=== PATIENT | female | born 1940 | race Caucasian/White ===

== ENCOUNTER → 2018-05-03 | Outpatient (REF) | payer MEDICARE, OTHER ==
[2018-05-03 18:24] LABS: APPEARANCE, URINE HAZY (CLEAR); BACTERIA, URINE AUTO 1+ (NEGATIVE); BILIRUBIN, URINE AUTO NEGATIVE (NEGATIVE); BLOOD, URINE BLOOD 2+ (NEGATIVE); COLOR, URINE YELLOW (YELLOW); GLUCOSE, URINE (UA) AUTO NEGATIVE (NEGATIVE); KETONE, URINE AUTO NEGATIVE (NEGATIVE); LEUKOCYTE ESTERASE, URINE AUTO 3+ (NEGATIVE); MUCUS, URINE SMALL (NEGATIVE); NITRITE, URINE AUTO NEGATIVE (NEGATIVE); PROTEIN, URINE AUTO NEGATIVE (NEGATIVE); RBC, URINE AUTO 27 /HPF (0-3); SPECIFIC GRAVITY URINE AUTO 1.021 (1.002-1.035); SQUAMOUS EPITHELIAL CELL UR AU 0 /HPF (0-6); UROBILINOGEN, URINE AUTO 0.2 mg/dL (0.0-2.0); WBC, URINE AUTO TNTC /HPF (0-3)
== END ==
LOC: M SFHCCAPE 13:16
DX: R30.0 Dysuria (principal)
CPT/HCPCS: 81001

== ENCOUNTER → 2018-07-31 | Outpatient (REF) | payer MEDICARE, OTHER ==
[2018-07-31 16:52] LABS: APPEARANCE, URINE CLOUDY (CLEAR); BACTERIA, URINE AUTO NEGATIVE (NEGATIVE); BILIRUBIN, URINE AUTO NEGATIVE (NEGATIVE); BLOOD, URINE BLOOD NEGATIVE (NEGATIVE); COLOR, URINE AMBER (YELLOW); GLUCOSE, URINE (UA) AUTO NEGATIVE (NEGATIVE); KETONE, URINE AUTO NEGATIVE (NEGATIVE); LEUKOCYTE ESTERASE, URINE AUTO 2+ (NEGATIVE); MUCUS, URINE SMALL (NEGATIVE); NITRITE, URINE AUTO NEGATIVE (NEGATIVE); PROTEIN, URINE AUTO NEGATIVE (NEGATIVE); RBC, URINE AUTO 5 /HPF (0-3); SQUAMOUS EPITHELIAL CELL UR AU 1 /HPF (0-6); UROBILINOGEN, URINE AUTO 0.2 mg/dL (0.0-2.0); WBC, URINE AUTO 8 /HPF (0-3)
== END ==
LOC: M SFHCCAPE 13:28
PROVIDERS: ATTEND Physician Assistant
DX: N39.0 Urinary tract infection, site not specified (principal)
CPT/HCPCS: 81001; 87086; G0463

== ENCOUNTER → 2018-12-29 | Outpatient (REF) | payer MEDICARE, OTHER | LOC: M SFHCCLAY 11:48 | PROVIDERS: ATTEND Family Medicine | DX: N30.00 Acute cystitis without hematuria (principal) | CPT/HCPCS: 81002; 87086; G0463 ==

== ENCOUNTER → 2019-01-08 | Outpatient (CLI) | payer MEDICARE, OTHER ==
--- NOTE | 2019-01-16 12:49 | REP ---
CT ABDOMEN AND PELVIS WITHOUT IV CONTRAST: CT abdomen and pelvis performed without oral or IV contrast. Sagittal and coronal reconstruction images are performed. Comparison prior study [facility] dated 11/09/2013. The visualized lung bases demonstrate no evidence of acute infiltrate. There is a small hiatal hernia. The liver, gallbladder, spleen, adrenals, pancreas and right kidney are grossly unremarkable. There is no right hydronephrosis or nephrolithiasis. There is again evidence of prior left retroperitoneal surgery with multiple metallic clips noted. There is left renal atrophy. Configuration of the left kidney is unchanged. A small calcification is seen in the lower pole of the left kidney unchanged. There is no left hydronephrosis. There is no abdominal aortic aneurysm. I see no adenopathy in the abdomen or pelvis. There is no free air or free fluid. No bowel wall thickening is seen. There is no evidence of appendicitis. There is sigmoid diverticulosis. There is no gross pelvic mass. Urinary bladder is mildly distended and grossly unremarkable. There are degenerative changes of the spine. IMPRESSION: Small hiatal hernia. Postsurgical changes left retroperitoneum with left renal atrophy again noted. Small calcification again seen in the lower pole of the left kidney. The appearance is similar to prior CT exam of 11/09/2013. No hydronephrosis bilaterally. No evidence of appendicitis. There is sigmoid diverticulosis without definite evidence of diverticulitis. No free air or free fluid. Electronically Signed by Myke Santoyo MD 01/17/2019 08:29 P
== END ==
LOC: M RAD 13:07
PROVIDERS: ATTEND Physician Assistant
DX: K44.9 Diaphragmatic hernia without obstruction or gangrene (principal); N26.1 Atrophy of kidney (terminal); N20.0 Calculus of kidney; K57.30 Diverticulosis of large intestine without perforation or abscess without bleeding; R53.83 Other fatigue; R50.9 Fever, unspecified; R10.9 Unspecified abdominal pain
CPT/HCPCS: 36415; 74176; 81002; G0463

== ENCOUNTER → 2019-01-08 | Outpatient (REF) | payer MEDICARE, OTHER ==
[2019-01-08 18:00] LABS: BASO # 0.1 10^3/uL (0.0-0.2); BASO % 0.4 % (0.0-1.0); EOS % 0.1 % (0.0-3.0); HEMATOCRIT 39.2 % (36.0-47.0); HEMOGLOBIN 12.9 g/dl (12.0-15.5); LYMPH # 3.6 10^3/uL (1.5-4.5); LYMPH % 23.6 % (24.0-44.0); MEAN CORPUSCULAR HEMOGLOBIN 31.9 pg (27.0-33.0); MEAN CORPUSCULAR HGB CONC 32.9 g/dl (32.0-36.5); MONO # 0.6 10^3/uL (0.0-0.8); MONO % 3.8 % (0.0-5.0); NEUTROPHILS # 10.8 10^3/uL (1.8-7.7); NEUTROPHILS % 71.7 % (36.0-66.0); PLATELET COUNT, AUTOMATED 216 10^3/uL (150-450); RED BLOOD COUNT 4.04 10^6/uL (4.00-5.40); WHITE BLOOD COUNT 15.1 10^3/uL (4.0-10.0)
[2019-01-08 18:02] LABS: APPEARANCE, URINE HAZY (CLEAR); BACTERIA, URINE AUTO 1+ (NEGATIVE); BILIRUBIN, URINE AUTO NEGATIVE (NEGATIVE); BLOOD, URINE BLOOD 2+ (NEGATIVE); COLOR, URINE YELLOW (YELLOW); GLUCOSE, URINE (UA) AUTO NEGATIVE (NEGATIVE); KETONE, URINE AUTO NEGATIVE (NEGATIVE); LEUKOCYTE ESTERASE, URINE AUTO 3+ (NEGATIVE); MUCUS, URINE SMALL (NEGATIVE); NITRITE, URINE AUTO NEGATIVE (NEGATIVE); PROTEIN, URINE AUTO NEGATIVE (NEGATIVE); RBC, URINE AUTO 6 /HPF (0-3); SPECIFIC GRAVITY URINE AUTO 1.016 (1.002-1.035); SQUAMOUS EPITHELIAL CELL UR AU 1 /HPF (0-6); UROBILINOGEN, URINE AUTO 0.2 mg/dL (0.0-2.0); WBC, URINE AUTO 23 /HPF (0-3)
[2019-01-08 18:15] LABS: ALBUMIN 3.8 GM/DL (3.2-5.2); BILIRUBIN,TOTAL 0.7 MG/DL (0.2-1.0); CALCIUM LEVEL 9.2 MG/DL (8.8-10.2); CREATININE FOR GFR 1.19 MG/DL (0.55-1.30); GLOMERULAR FILTRATION RATE 46.9 (>39); POTASSIUM SERUM 4.5 MEQ/L (3.5-5.1); THYROID STIMULATING HORMONE 1.99 uIU/ML (0.358-3.740); TOTAL PROTEIN 7.1 GM/DL (6.4-8.2)
== END ==
LOC: M SFHCCAPE 12:01
PROVIDERS: ATTEND Physician Assistant
DX: R30.0 Dysuria (principal); R53.83 Other fatigue; R53.81 Other malaise; R50.9 Fever, unspecified

== ENCOUNTER → 2021-02-10 | Outpatient (REF) | payer MEDICARE, OTHER | LOC: M SFHCCAPE 14:15 | PROVIDERS: ATTEND Physician Assistant | DX: R30.0 Dysuria (principal) | CPT/HCPCS: 81002; 87086; G0463 ==

== ENCOUNTER → 2021-12-17 | Outpatient (REF) | payer MEDICARE, OTHER | LOC: M SFHCCAPE 13:35 | PROVIDERS: ATTEND Physician Assistant | DX: R30.0 Dysuria (principal) ==

== ENCOUNTER → 2021-12-29 | Outpatient (REF) | payer MEDICARE, OTHER | LOC: M SFHCCAPE 11:40 | PROVIDERS: ATTEND Physician Assistant | DX: R30.0 Dysuria (principal) ==

== ENCOUNTER → 2022-01-25 | Outpatient (REF) | payer MEDICARE, OTHER | LOC: M SFHCCAPE 11:15 | PROVIDERS: ATTEND Physician Assistant | DX: R30.0 Dysuria (principal); J06.9 Acute upper respiratory infection, unspecified; Z20.822 Contact with and (suspected) exposure to COVID-19 ==

== ENCOUNTER → 2022-02-25 | Outpatient (REF) | payer MEDICARE, BC, OTHER | LOC: M WUC 16:09 | PROVIDERS: ATTEND Physician Assistant | DX: N39.0 Urinary tract infection, site not specified (principal) ==

== ENCOUNTER → 2023-05-19 | Outpatient (REF) | payer MEDICARE, OTHER | LOC: M SFHCCLAY 14:29 | PROVIDERS: ATTEND Physician Assistant | DX: N39.0 Urinary tract infection, site not specified (principal) ==

== ENCOUNTER → 2024-02-14 | Outpatient (CLI) | payer MEDICARE, BC ==
[2024-02-14 13:42] LABS: HEMATOCRIT 31.5 % (36.0-47.0); HEMOGLOBIN 10.4 g/dl (12.0-15.5); MEAN CORPUSCULAR HEMOGLOBIN 38.1 pg (27.0-33.0); PLATELET COUNT, AUTOMATED 103 10^3/uL (150-450); RED BLOOD COUNT 2.73 10^6/uL (4.00-5.40); WHITE BLOOD COUNT 3.4 10^3/uL (4.0-10.0)
[2024-02-14 13:58] LABS: MEAN CORPUSCULAR VOLUME 115.4 fl (80.0-96.0)
[2024-02-14 14:01] LABS: LDH LACTATE DEHYDROGENASE 254 U/L (120-246)
[2024-02-14 14:02] LABS: IMMUNOGLOBULIN G 716 MG/DL (650-1600)
[2024-02-14 14:03] LABS: ALBUMIN 3.8 G/DL (3.2-5.2); ALKALINE PHOSPHATASE 98 U/L (46-116); ALT/SGPT 20 U/L (7.0-40); AST/SGOT 26 U/L (<34); BILIRUBIN,TOTAL 0.6 MG/DL (0.3-1.2); BLOOD UREA NITROGEN 21 MG/DL (9-23); CALCIUM LEVEL 9.6 MG/DL (8.3-10.6); CARBON DIOXIDE LEVEL 30 MMOL/L (20-31); CHLORIDE LEVEL 108 MMOL/L (98-107); CREATININE FOR GFR 0.94 MG/DL (0.55-1.30); GLOMERULAR FILTRATION RATE > 60.0 (>32); GLUCOSE, FASTING 64 MG/DL (74-106); SODIUM LEVEL 141 MMOL/L (136-145); TOTAL PROTEIN 6.4 G/DL (5.7-8.2)
[2024-02-14 14:34] LABS: EOSINOPHILS 2 % (0-3); LYMPHOCYTES 11 % (16-44); METAMYELOCYTES 3 % (0-0); MONOCYTES 6 % (0-5); MYELOCYTES 3 % (0-0); NEUTROPHILS 63 % (28-66)
[2024-02-14 14:35] LABS: ANISOCYTOSIS 1+; PLATELET ESTIMATE DECREASED (NORMAL)
[2024-02-14 16:51] LABS: IMMUNOGLOBULIN A < 33.0 MG/DL (40-350)
== END ==
LOC: M PLALAB 10:53
PROVIDERS: ATTEND Student in an Organized Health Care Education/Training Program
DX: C85.80 Other specified types of non-Hodgkin lymphoma, unspecified site (principal)

== ENCOUNTER → 2024-11-11 | Outpatient (REF) | payer MEDICARE, BC, OTHER | LOC: M LAB REF 17:46 | PROVIDERS: ATTEND Student in an Organized Health Care Education/Training Program | DX: R30.0 Dysuria (principal) ==